=== PATIENT | male | born 1960 | race Caucasian/White ===

== ENCOUNTER 2016-08-23 19:50 | Inpatient (IN) | payer SELFPAY ==
[~2016-08-23] VITALS: Ht 182.9 cm; Wt 79.0 kg
[~2016-08-23 19:50] MED LIST: COUMADIN4 MG PO; COUMADIN5 MG PO; DIGOXIN0.25 MG PO; DILTIAZEM120 MG PO; LANOXIN0.25 MG PO; LASIX 20 MG20 MG/TAB PO; LOPRESSOR 550 MG/TAB PO; METOPROL TAR50 MG PO; NO MEDS; ZESTRIL/PRIN5 MG/TA1 PO
[2016-08-23 20:25] LABS: HEMATOCRIT 44.6 % (39.0-50.0); HEMOGLOBIN 15.7 g/dl (14.0-18.0); IMMATURE GRANULOCYTES 0.6 % (0.0-1.0); MEAN CELL VOLUME 97.2 fL CALC (80.0-100.0); MEAN CORPUSCULAR HGB 34.2 pG CALC (26.0-32.0); MEAN CORPUSCULAR HGB CONC 35.2 g/L CALC (32.0-36.0); NEUT# 5.7 thou/uL (1.82-7.42); RED BLOOD COUNT 4.59 mill/uL (4.70-6.10); RED CELL DISTRI WIDTH 14.2 % (11.5-15.5)
[2016-08-23 20:33] LABS: INTERNATIONAL NORMALIZED RATIO 2.8 RATIO (0.7-1.3); PROTHROMBIN TIME 33.1 SECONDS (9.0-12.5)
[2016-08-23 20:37] LABS: ALBUMIN 4.7 g/dL (3.2-5.0); ALKALINE PHOSPHATASE 111 u/l (38-126); ANION GAP 20 (6-22 (CALC)); BILIRUBIN, TOTAL 0.5 mg/dL (0.0-1.4); BUN 9 mg/dL (9-20); BUN/CREATININE RATIO 9 (12-20 (CALC)); CALCIUM 9.3 mg/dL (8.4-10.2); CARBON DIOXIDE 20 mmol/l (22-30); CHLORIDE 101 mmol/l (95-108); ETHYL ALCOHOL 246 mg/dl (0-30); GFR > 60 ML/MIN (>=60 (CALC)); GFR FOR AFR.AMER. > 60 ML/MIN (>=60 (CALC)); GLUCOSE 98 mg/dL (75-110); POTASSIUM 4.5 mmol/l (3.5-5.1); SGOT/AST 55 u/l (17-59); SGPT/ALT 68 u/l (21-72); SODIUM 136 mmol/l (137-146); TOTAL PROTEIN 8.2 g/dL (6.3-8.2)
[2016-08-23 20:46] LABS: DIGOXIN < 0.4 ng/mL (0.8-2.0)
[2016-08-23 20:48] LABS: MYOGLOBIN 39 ng/mL (0 - 121)
[2016-08-23] MEDS ORDERED: WARFARIN3 MG PO (20:48)
[2016-08-23] MEDS ORDERED: CARVEDILOL25 MG PO (20:50)
[2016-08-23] MEDS ORDERED: AMIODARONE200 MG PO (20:51)
[2016-08-23] MEDS ORDERED: MAXIDE1 COMBO PO (20:52)
[2016-08-23 20:58] LABS: URINE BILIRUBIN - DIPSTICK NEGATIVE (NEGATIVE); URINE BLOOD DIPSTICK NEGATIVE (NEGATIVE); URINE CLARITY CLEAR; URINE COLOR YELLOW; URINE GLUCOSE - DIPSTICK NEGATIVE (NEGATIVE); URINE KETONE NEGATIVE (NEGATIVE); URINE LEUK ESTERASE NEGATIVE (NEGATIVE); URINE NITRITE - DIPSTICK NEGATIVE (Negative); URINE PROTEIN - DIPSTICK NEGATIVE (NEG-TRACE); URINE UROBILINOGEN - DIPSTICK 0.2 E.U./dL (0.2)
[2016-08-23 21:06] LABS: BARBITURATES NEGATIVE (NEGATIVE); COCAINE NEGATIVE (NEGATIVE); METHADONE NEGATIVE (NEGATIVE); TETRAHYDROCANNABIONOL POSITIVE (NEGATIVE); TRICYLIC ANTIDEPRESSANTS NEGATIVE (NEGATIVE)
[2016-08-23 21:07] LABS: OXCYCODONE NEGATIVE (NEGATIVE)
[2016-08-23 22:20] VITALS: BP 136/89
[2016-08-24 04:27] VITALS: BP 140/58
[2016-08-24 05:29] LABS: HEMATOCRIT 43.4 % (39.0-50.0); HEMOGLOBIN 15.2 g/dl (14.0-18.0); IMMATURE GRANULOCYTES 0.4 % (0.0-1.0); MEAN CELL VOLUME 97.3 fL CALC (80.0-100.0); MEAN CORPUSCULAR HGB 34.1 pG CALC (26.0-32.0); NEUT# 4.23 thou/uL (1.82-7.42); RED BLOOD COUNT 4.46 mill/uL (4.70-6.10); RED CELL DISTRI WIDTH 14.1 % (11.5-15.5)
[2016-08-24 05:47] LABS: ANION GAP 17 (6-22 (CALC)); BUN 10 mg/dL (9-20); BUN/CREATININE RATIO 11 (12-20 (CALC)); CALCIUM 9.1 mg/dL (8.4-10.2); CALCULATED LDLCHOLESTEROL 84 mg/dL (62-129 (CALC)); CARBON DIOXIDE 21 mmol/l (22-30); CHLORIDE 105 mmol/l (95-108); GFR > 60 ML/MIN (>=60 (CALC)); GFR FOR AFR.AMER. > 60 ML/MIN (>=60 (CALC)); GLUCOSE 82 mg/dL (75-110); HDL CHOLESTEROL 54 mg/dL (>=40); INTERNATIONAL NORMALIZED RATIO 2.9 RATIO (0.7-1.3); MAGNESIUM 1.9 mg/dL (1.6-2.3); POTASSIUM 3.6 mmol/l (3.5-5.1); PROTHROMBIN TIME 34.2 SECONDS (9.0-12.5); SODIUM 140 mmol/l (137-146); TOTAL CHOLESTEROL 165 mg/dl (0-199); TOTAL TRIGLYCERIDES 133 mg/dl (30-149); VLDL CHOLESTROL 27 mg/dl (8-62 (CALC))
[2016-08-24 09:12] VITALS: BP 128/86
[2016-08-24 11:17] VITALS: BP 131/89
== END 2016-08-24 15:05 | disposition home or self-care (01) | DRG 65 ==
LOC: ENPENDDIS → ED 19:50 → ED-I 21:37 → ED 21:56 → MS2 21:57
PROVIDERS: Emergency Medicine; ADMIT Internal Medicine; ATTEND Internal Medicine
DX: I63.9 Cerebral infarction, unspecified (principal); G81.94 Hemiplegia, unspecified affecting left nondominant side; I42.9 Cardiomyopathy, unspecified; R13.10 Dysphagia, unspecified; I11.0 Hypertensive heart disease with heart failure; I50.9 Heart failure, unspecified; R29.810 Facial weakness; I48.91 Unspecified atrial fibrillation; F10.229 Alcohol dependence with intoxication, unspecified; R29.702 NIHSS score 2; F17.210 Nicotine dependence, cigarettes, uncomplicated; Y90.8 Blood alcohol level of 240 mg/100 ml or more; Z79.01 Long term (current) use of anticoagulants

== ENCOUNTER 2022-09-29 17:08 | Inpatient (IN) | payer MEDICAID ==
[2022-09-29] VITALS (14 sets, daily range): BP systolic 98–126; BP diastolic 67–87
[~2022-09-29] VITALS: Ht 182.9 cm; Wt 62.0 kg
[~2022-09-29 17:08] MED LIST changes: +AMIODARONE200 MG PO; +CARVEDILOL25 MG PO; +MAXIDE1 COMBO PO; +WARFARIN3 MG PO
--- NOTE | 2022-09-29 17:10 | NUR ---
PT WHEELED TO ROOM
--- NOTE | 2022-09-29 17:15 | NUR ---
PT TO ROOM 2 VIA W/C, USES CANE TO WALK, FAMILY AT SIDE, CALL LIGHT IN REACH, PROVIDER NOTIFIED AND AT BEDSIDE.
[2022-09-29] MEDS ORDERED: XARELTO20 MG PO (17:23)
[2022-09-29 17:39] LABS: BASO% 0.5 % (0-3); EOS% 2.6 % (0-8); HEMATOCRIT 39.1 % (39.0-50.0); IMMATURE GRANULOCYTES 0.3 % (0.0-5.0); LYMPH% 28.2 % (15-41); MEAN CELL VOLUME 100.3 fL CALC (80.0-100.0); MEAN CORPUSCULAR HGB 33.6 pG CALC (26.0-32.0); MEAN CORPUSCULAR HGB CONC 33.5 g/dL CAL (32.0-36.0); MONO% 10.8 % (2-13); NEUT# 4.35 thou/uL (1.82-7.42); NEUT% 57.6 % (42-76); RED BLOOD COUNT 3.9 mill/uL (4.70-6.10); RED CELL DISTRI WIDTH 14.6 % (11.5-15.5)
[2022-09-29 17:41] LABS: HEMOGLOBIN 13.1 g/dl (14.0-18.0)
[2022-09-29 17:53] LABS: ALBUMIN 4.5 g/dL (3.2-5.0); ALKALINE PHOSPHATASE 122 u/l (38-126); ANION GAP 15 (6-22 (CALC)); BILIRUBIN, TOTAL 0.3 mg/dL (0.2-1.3); BUN 15 mg/dL (8-23); BUN/CREATININE RATIO 14 (12-20 (CALC)); CARBON DIOXIDE 19 mmol/l (22-30); CHLORIDE 105 mmol/l (95-108); CREATININE 1.1 mg/dL (0.7-1.3); GFR FOR AFR.AMER. > 60 ML/MIN (>=60 (CALC)); GFR OTHER RACES > 60 ML/MIN (>=60 (CALC)); SGOT/AST 23 u/l (19-48); SODIUM 135 mmol/l (137-146); TOTAL PROTEIN 7.6 g/dL (6.3-8.2)
--- NOTE | 2022-09-29 18:26 | NUR ---
PT RETURNED FROM XRAY, RADIOLOGY STATES THAT SHE FOUND BABY ROACHES CRAWLING ON THE PT HAIR AND HAT. TECH REMOVED PT HAT AND ROACHES STARTED CRAWLING ON THE COUNTER TOP. PT AWARE AND IN NO DISTRESS. HOUSE KEEPING AWARE [facility]
--- NOTE | 2022-09-29 19:18 | NUR ---
COLLEEN RN PLACED PT ON CONTINUOUS MONITOR. PROVIDER IN ROOM TO SPEAK TO PT
--- NOTE | 2022-09-29 20:05 | NUR ---
PT LAYING IN BED, NO DISTRESS NOTED. FAMILY AT BEDSIDE.
--- NOTE | 2022-09-29 20:58 | NUR ---
PT AMIODARONE BOLUS AT 3, WILL GO IN OVER 10 MIN.
--- NOTE | 2022-09-29 21:04 | NUR ---
PT IN ROOM. NO DISTRESS NOTED
--- NOTE | 2022-09-29 21:14 | NUR ---
AMIODARONE GTT BEGAN AT 2104
--- NOTE | 2022-09-29 21:45 | NUR ---
CALLED AND GAVE PT REPORT TO ICU FLOOR
--- NOTE | 2022-09-29 21:52 | NUR ---
62 yr old white male amitted icu2 per stretcher from er. trnsferred self to bed. bed weight obtained. pt is VERY dirty & unkept. several roaches came out of shoes. 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 #20 rac saline lock. #20 lac amiodarone gtt cont. history obtained per pt, er record & old record. oriented to room. fall precautions initiated.
[2022-09-30] VITALS (9 sets, daily range): BP systolic 86–132; BP diastolic 59–94
--- NOTE | 2022-09-30 00:01 | NUR ---
eyes closed. no distress. electronic device monitor shows a fib.
--- NOTE | 2022-09-30 02:00 | NUR ---
resting quietly. no apparent distress. ivf infusing well.
--- NOTE | 2022-09-30 04:00 | NUR ---
resting quietly. no apparent distress. 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
--- NOTE | 2022-09-30 04:30 | NUR ---
lab here. blood drawn.
[2022-09-30 05:39] LABS: BASO% 0.5 % (0-3); EOS% 3.1 % (0-8); HEMATOCRIT 36.1 % (39.0-50.0); HEMOGLOBIN 12.2 g/dl (14.0-18.0); IMMATURE GRANULOCYTES 0.3 % (0.0-5.0); LYMPH% 24.9 % (15-41); MEAN CORPUSCULAR HGB 34.5 pG CALC (26.0-32.0); MEAN CORPUSCULAR HGB CONC 33.8 g/dL CAL (32.0-36.0); MONO% 10.5 % (2-13); NEUT# 3.93 thou/uL (1.82-7.42); NEUT% 60.7 % (42-76); RED BLOOD COUNT 3.54 mill/uL (4.70-6.10); RED CELL DISTRI WIDTH 15.1 % (11.5-15.5)
[2022-09-30 05:43] LABS: ALBUMIN 3.6 g/dL (3.2-5.0); ALKALINE PHOSPHATASE 95 u/l (38-126); ANION GAP 15 (6-22 (CALC)); BUN 13 mg/dL (8-23); BUN/CREATININE RATIO 15 (12-20 (CALC)); CARBON DIOXIDE 18 mmol/l (22-30); CHLORIDE 107 mmol/l (95-108); CREATININE 0.9 mg/dL (0.7-1.3); GFR FOR AFR.AMER. > 60 ML/MIN (>=60 (CALC)); GFR OTHER RACES > 60 ML/MIN (>=60 (CALC)); MAGNESIUM 1.7 mg/dL (1.6-2.3); POTASSIUM 4.4 mmol/l (3.5-5.1); SGOT/AST 30 u/l (19-48); SODIUM 136 mmol/l (137-146); TOTAL PROTEIN 6.1 g/dL (6.3-8.2)
[2022-09-30 05:48] LABS: BILIRUBIN, TOTAL 0.6 mg/dL (0.2-1.3)
--- NOTE | 2022-09-30 08:00 | NUR ---
REPORT RECIEVED FROM NIGHT RN. PT IS AWAKE AND ALERT, ORIENTED TO PERSON PLACE TIME. PT WATCHING TV; NO PAIN OR DISTRESS. PT REPORTEDLY CAME IN DUE TO SORE THROAT AND VOICE CHANGES, AND WAS THEN FOUND TO BE IN AFIBRVR. PT CONFIRMS THAT HE HAS HX OF AFIB AND TAKES MEDS FOR IT AT HOME. PT IS ON AMIODARONE IV PER PROTOCOL. CURRENTLY PT IS STILL IN AFIB AND RATE IS 110-140. LUNG SOUNDS CLEAR; PT ON RA. BOWEL SOUNDS ACTIVE. PT VOIDING WITHOUT DIFFICULTY. PULSES STRONG ALL EXTREMETIES. SKIN WARM/DRY/INTACT. PT ASKING TO BE DISCHARGED. IV [id number] LAC AND 20 R FOREARM.
--- NOTE | 2022-09-30 09:05 | NUR ---
DR. BEJARANO AT BEDSIDE TO ASSESS PT. PT ASKING TO LEAVE AMA.
--- NOTE | 2022-09-30 09:30 | NUR ---
Patient decides to leave AMA. Multiple attempts made to ecourage patient to remain here for continued treatment. Explained to patient all risks of leaving against medical advice including . Pt verbalized understanding of all risks. Pt also encouraged to return to [facility] at any time, especially if symptoms continue or become worse. Pt verbalized understanding.
== END 2022-09-30 09:30 | disposition left against medical advice (07) | DRG 310 ==
LOC: ED 17:08 → ICU 20:16
PROVIDERS: Nurse Practitioner; ADMIT Internal Medicine; ATTEND Internal Medicine
DX: I48.91 Unspecified atrial fibrillation (principal); R49.0 Dysphonia; I10 Essential (primary) hypertension; I42.9 Cardiomyopathy, unspecified; F10.10 Alcohol abuse, uncomplicated; F17.200 Nicotine dependence, unspecified, uncomplicated; Z79.01 Long term (current) use of anticoagulants; Z20.822 Contact with and (suspected) exposure to COVID-19
CPT/HCPCS: J0282

== ENCOUNTER 2022-12-23 14:04 | Emergency (ER) | payer MEDICAID ==
[~2022-12-23] VITALS: Ht 182.9 cm; Wt 43.0 kg
[2022-12-23] VITALS (29 sets, daily range): BP systolic 57–151; BP diastolic 25–131
[~2022-12-23 14:04] MED LIST changes: +XARELTO20 MG PO
[2022-12-23 14:44] LABS: BASO% 0.1 % (0-3); EOS% 0.5 % (0-8); HEMOGLOBIN 12.1 g/dl (14.0-18.0); IMMATURE GRANULOCYTES 0.2 % (0.0-5.0); LYMPH% 6.8 % (15-41); MEAN CORPUSCULAR HGB 34.7 pG CALC (26.0-32.0); MEAN CORPUSCULAR HGB CONC 32.7 g/dL CAL (32.0-36.0); MONO% 6.1 % (2-13); NEUT# 8.1 thou/uL (1.82-7.42); NEUT% 86.3 % (42-76); RED BLOOD COUNT 3.49 mill/uL (4.70-6.10); RED CELL DISTRI WIDTH 15.3 % (11.5-15.5)
[2022-12-23 14:53] LABS: ALBUMIN 3.6 g/dL (3.2-5.0); BILIRUBIN, TOTAL 0.6 mg/dL (0.2-1.3); TOTAL PROTEIN 6.6 g/dL (6.3-8.2)
[2022-12-23 15:09] LABS: CREATININE 11.8 mg/dL (0.7-1.3)
[2022-12-23 15:10] LABS: POTASSIUM 6.8 mmol/l (3.5-5.1)
[2022-12-23 17:41] LABS: URINE BLOOD DIPSTICK Moderate (NEGATIVE); URINE GLUCOSE - DIPSTICK Negative (NEGATIVE); URINE KETONE Trace mg/dL (NEGATIVE); URINE NITRITE - DIPSTICK Negative (Negative); URINE PROTEIN - DIPSTICK 100 mg/dL (NEG-TRACE); URINE SPECIFIC GRAVITY 1.025; URINE UROBILINOGEN - DIPSTICK 0.2 E.U./dL (0.2)
[2022-12-23 17:44] LABS: URINE COLOR Yellow; URINE LEUK ESTERASE Small (NEGATIVE)
--- NOTE | 2022-12-25 08:48 | NUR ---
Preliminary blood culture results of 05/07 growing gram negative rods called and faxed to LYNDA Cuevas at [facility].
--- NOTE | 2022-12-26 08:46 | NUR ---
We attempted to send the final results of blood cultures collected on 12/23/22 to Pt's nurse in charge. She stated that she doesn't need them.
== END 2022-12-23 21:20 | disposition short-term general hospital (02) ==
LOC: ED 14:04
PROVIDERS: Family Medicine; Nurse Practitioner
DX: N17.9 Acute kidney failure, unspecified (principal); E87.5 Hyperkalemia; I48.91 Unspecified atrial fibrillation; F10.20 Alcohol dependence, uncomplicated; R63.6 Underweight; I11.0 Hypertensive heart disease with heart failure; I50.9 Heart failure, unspecified; I42.9 Cardiomyopathy, unspecified; F17.200 Nicotine dependence, unspecified, uncomplicated; I95.9 Hypotension, unspecified